=== PATIENT | female | born 1955 | race Caucasian/White ===

== ENCOUNTER 2020-10-26 16:54 | Emergency (ER) | payer OTHER ==
[~2020-10-26 16:54] MED LIST: ADVIL200 M1 PO; ANTIVERT25 MG PO; ASPIRIN EC81 MG PO; FLEXERIL10 MG PO; LOVASTATIN40 MG PO; METFORMIN HCL500 MG PO; PRINIVIL20 MG PO; PROLIA60 MG/1 ML SC; SERTRALINE HCL100 MG PO; VENTOLIN HFA IN18 GM INH; ZOVIRAX200 MG PO
== END 2020-10-26 22:07 | disposition home or self-care (01) ==
LOC: FER 16:54
DX: S51.812A Laceration without foreign body of left forearm, initial encounter (principal); I25.10 Atherosclerotic heart disease of native coronary artery without angina pectoris; E11.9 Type 2 diabetes mellitus without complications; Z23 Encounter for immunization; Z86.73 Personal history of transient ischemic attack (TIA), and cerebral infarction without residual deficits; Z88.0 Allergy status to penicillin; W45.8XXA Other foreign body or object entering through skin, initial encounter; Y92.009 Unspecified place in unspecified non-institutional (private) residence as the place of occurrence of the external cause
CPT/HCPCS: 73090; 90471; 90715

== ENCOUNTER → 2021-04-23 | Day surgery (SDC) | payer OTHER ==
[~2021-04-23] VITALS: Ht 162.6 cm; Wt 62.6 kg
[~2021-04-23] MED LIST changes: +CALCIUM WITH V1 EAC2 PO; +CLARITIN10 MG PO; +CLONAZEPAM0.5 MG PO; +CO Q-10200 MG PO; +LEXAPRO 10MG TA10 MG PO; +LYSINE1000 MG PO; +MAG-OXIDE 400M400 MG PO; +MOBIC7.5 MG PO; +PLAVIX75 MG PO; +SV FLAXSEED OI1 EACH PO; +VITAMIN C1000 MG PO; +VITAMIN D PO; +[UNRECOGNIZED DRUG - OTHER] PO
== END | disposition home or self-care (01) ==
LOC: FAS 08:48
DX: D50.9 Iron deficiency anemia, unspecified (principal); K57.30 Diverticulosis of large intestine without perforation or abscess without bleeding; K64.4 Residual hemorrhoidal skin tags; K52.9 Noninfective gastroenteritis and colitis, unspecified; Z79.02 Long term (current) use of antithrombotics/antiplatelets; Z86.73 Personal history of transient ischemic attack (TIA), and cerebral infarction without residual deficits
CPT/HCPCS: 82962; J2250; J2704; J7120

== ENCOUNTER 2021-08-02 22:37 | Emergency (ER) | payer OTHER ==
[2021-08-03] MEDS ORDERED: TRAMADOL HCL50 MG PO (00:42)
== END 2021-08-03 01:18 | disposition home or self-care (01) ==
LOC: FER 22:37
DX: S70.02XA Contusion of left hip, initial encounter (principal); S40.022A Contusion of left upper arm, initial encounter; I10 Essential (primary) hypertension; E11.9 Type 2 diabetes mellitus without complications; Z79.84 Long term (current) use of oral hypoglycemic drugs; Z88.0 Allergy status to penicillin; W06.XXXA Fall from bed, initial encounter; Y92.009 Unspecified place in unspecified non-institutional (private) residence as the place of occurrence of the external cause
CPT/HCPCS: 72170; 73060; 73100; 73552

== ENCOUNTER → 2021-08-24 | Day surgery (SDC) | payer MEDICARE ==
[~2021-08-24] VITALS: Ht 162.6 cm; Wt 60.8 kg
[~2021-08-24] MED LIST changes: +ACETAMINOPHEN325 MG PO; +BENTYL10 MG PO; +NORCO 5/3251 EACH PO; +TRAMADOL HCL50 MG PO; +ZINC50 M1 PO
[2021-08-24 13:08] LABS: HCT 38.2 % (37.0-47.0); HGB 11.8 g/dl (12.5-16.0); MCH 26.6 pg (25.0-31.0); MCHC 30.9 g/dL (32.0-36.0); MPV 9.5 fL (6.0-9.5); RBC 4.44 M/uL (4.20-5.40); RDW 15.4 % (11.5-14.0)
[2021-08-24 13:41] LABS: ALBUMIN 4.2 g/dL (3.4-5.0); BILIRUBIN - TOTAL 0.3 mg/dL (0.2-1.0); BUN/CREAT RATIO (CALC) 18.6 RATIO; CREATININE 0.59 mg/dL (0.51-0.95); GLOBULIN (CALCULATION) 3.3 g/dL; POTASSIUM 4.6 mmol/L (3.5-5.1); TOTAL PROTEIN 7.5 g/dL (6.4-8.2)
== END | disposition home or self-care (01) ==
LOC: FAS 11:50
PROVIDERS: Orthopaedic Surgery
DX: M65.841 Other synovitis and tenosynovitis, right hand (principal)
CPT/HCPCS: 36415; 80053; J1100; J1170; J1885; J2250; J2370; J2405; J2704; J7120

== ENCOUNTER → 2021-09-22 | Day surgery (SDC) | payer MEDICARE ==
[~2021-09-22] VITALS: Ht 162.6 cm; Wt 60.8 kg
== END | disposition home or self-care (01) ==
LOC: FAS 05:59
DX: M65.842 Other synovitis and tenosynovitis, left hand (principal)
CPT/HCPCS: J1100; J1885; J2250; J2405; J2704; J3010; J7120